=== PATIENT | male | born 1950 | race Caucasian/White ===

== ENCOUNTER 2016-11-25 10:19 | Inpatient (IN) ==
[2016-11-25] MEDS ORDERED: *HR* OxyCODONE Immed Rel 5 MG TABLET PO PRN (15:17)
[2016-11-25] MEDS: *HR* OxyCODONE Immed Rel 5 MG TABLET PO PRN (17:44)
[2016-11-26] MEDS: *HR* OxyCODONE Immed Rel 5 MG TABLET PO PRN ×4 (05:11→20:13)
[2016-11-26] MEDS: *HR* Enoxaparin 40 MG/0.4 ML SYRINGE SQ SCH (05:12)
[2016-11-26 05:23] LABS: Hemoglobin 10.3 g/dL (12.9-16.9); Mean Corpuscular HGB Conc 34.3 g/dL (31.6-35.5); Mean Corpuscular Hemoglobin 31.4 pg (28.0-33.3); Mean Corpuscular Volume 91.5 fL (83.0-100.0); Mean Platelet Volume 9.7 fL (9.4-12.4); Platelet Count 245 K/mcL (140-400); Red Blood Count 3.28 M/mcL (4.19-5.50); Red Cell Distribution Width 13.6 % (11.5-14.5)
[2016-11-26 05:38] LABS: BUN/Creatinine Ratio 20 (6-26); Blood Urea Nitrogen 14 mg/dL (8-26); Calcium 9.2 mg/dL (8.6-10.8); Carbon Dioxide 26 mEq/L (19-29); Chloride 102 mEq/L (98-109); Glucose 104 mg/dL (70-99); Osmolality,Calculated 285 (280-300); Potassium 3.9 mEq/L (3.5-4.5); Sodium 137 mEq/L (136-145); eGFR For African Americans > 60 (> 60); eGFR For Non-African Americans > 60 (> 60)
[2016-11-26] MEDS: Metoprolol XL (24 HR) Succ 25 MG TAB.ER.24H PO SCH (08:57)
[2016-11-26] MEDS: Aspirin Enteric Coated 325 MG Tablet PO SCH (08:57)
[2016-11-26] MEDS: Cholecalciferol (D-3) 1,000 UNIT TABLET PO SCH (08:58)
[2016-11-26] MEDS: Multivit/Ca/Min/Fe/FA 1 TAB TABLET PO SCH (08:58)
--- NOTE | 2016-11-26 13:07 | Internal Med History&Physical ---
Date of Encounter: 11/26/16 Time of Encounter: 13:05 Assessment and Plan (1) Status post total knee replacement, left Current visit: Yes Status: Acute Patient's here for rehabilitation status post left total knee replacement for osteoarthritis Internal Medicine - H&P: HPI Admitted From: Hospital to Hospital Transfer Plans for Post Hospital Care: Home History of present illness: Mr. Singh is a 66 year old male Past Med Surg Social Fam HX - Past Medical History Medical history: arthritis, hypertension Psychiatric history: no psych history, anxiety - Social History Smoking Status: Never smoker Smokeless Tobacco Status: No Alcohol use: none Drug use: none Internal Medicine - H&P: Meds Cholecalciferol (Vitamin D3) [Vitamin D3] 5,000 unit PO DAILY 10/21/16 [History] Diclofenac Sodium 50 mg PO TID PRN 10/21/16 [History] Flaxseed Oil [[place]-3 Flaxseed Oil] 1,000 mg PO DAILY 10/21/16 [History] Gluc/Dequan-MSM#1/C/Bjorn/Fito/Bor [Osteo Bi-Flex Caplet] 1 each PO DAILY 10/21/16 [ History] Multivitamin [Multivitamins] 1 each PO DAILY 10/21/16 [History] Aspirin Enteric Coated [Aspirin EC] 325 mg PO DAILY #21 tablet. 11/21/16 [Rx] Metoprolol XL (24 HR) Succ [Toprol XL] 25 mg PO DAILY 11/22/16 [History] Allergies Penicillins [PCN] Adverse Reaction (Verified 11/22/16 20:03) Rash All Systems PM: A 10-system review of systems was performed and is negative for pertinent findings except as documented above in the HPI. - Constitutional Vitals: Temp Pulse Resp BP Pulse Ox 98.9 F 79 19 126/73 93 11/26/16 04:20 11/26/16 04:20 11/26/16 04:20 11/26/16 04:20 11/26/16 04:20 - Head Head exam: Present: atraumatic, normocephalic - Neck Neck exam general surgery: Present: supple, trachea midline. Absent: lymphadenopathy - Respiratory Respiratory exam: Present: CTAB. Absent: accessory muscle use, rales, rhonchi, wheezes - Cardiovascular Cardiovascular exam: Present: RRR, +S1, +S2. Absent: diastolic murmur, gallop, rubs, systolic murmur Internal Med - H&P Results - Labs CBC & Chem 7: 11/26/16 05:05 11/26/16 05:05 Labs: Lab is stable Short CBC 11/26/16 Range/Units 05:05 WBC 9.1 (4.3-11.1) K/mcL Hgb 10.3 L (12.9-16.9) g/dL Hct 30.0 L (37.5-50.1) % Plt Count 245 (140-400) K/mcL BMP 11/26/16 05:05 Sodium 137 Potassium 3.9 Chloride 102 Carbon Dioxide 26 BUN 14 Creatinine 0.70 L Glucose 104 H Calcium 9.2
[2016-11-27] MEDS: *HR* OxyCODONE Immed Rel 5 MG TABLET PO PRN ×5 (00:36→23:41)
[2016-11-27] MEDS: *HR* Enoxaparin 40 MG/0.4 ML SYRINGE SQ SCH (06:29)
[2016-11-27] MEDS: Multivit/Ca/Min/Fe/FA 1 TAB TABLET PO SCH (09:05)
[2016-11-27] MEDS: Aspirin Enteric Coated 325 MG Tablet PO SCH (09:05)
[2016-11-27] MEDS: Cholecalciferol (D-3) 1,000 UNIT TABLET PO SCH (09:05)
[2016-11-27] MEDS: Metoprolol XL (24 HR) Succ 25 MG TAB.ER.24H PO SCH (09:05)
--- NOTE | 2016-11-27 18:46 | Internal Med Progress Note ---
Date of Encounter: 11/27/16 Time of Encounter: 18:43 - Assessment and plan (1) Status post total knee replacement, left Current Visit: Yes Status: Acute Assessment and plan: PT and OT working on transfer, safety, balance, endurance. - Time Spent With Patient less than 15 minutes - Subjective Interval history: Complains of mild left postop pain. No shortness of breath. No chest pain. No nausea no vomiting. - Constitutional Vitals: Temp Pulse Resp BP Pulse Ox 97 F L 74 16 153/63 99 11/27/16 07:33 11/27/16 07:33 11/27/16 07:33 11/27/16 07:33 11/27/16 07:33 General appearance: Present: A&O X 3, pleasant, no acute distress - Respiratory Respiratory exam: Present: CTAB. Absent: accessory muscle use, rales, rhonchi, wheezes - Cardiovascular Cardiovascular exam: Present: RRR, +S1, +S2. Absent: diastolic murmur, gallop, rubs, systolic murmur - GI/Abdominal GI/Abdominal exam: Present: normal bowel sounds, soft, no peritoneal signs. Absent: distended, tenderness - Expanded Lower Extremities Exam Knee exam: Present: ecchymosis, swelling, tenderness - Incison Incision: Present: clean and dry Internal Medicine: Result - Labs CBC & Chem 7: 11/26/16 05:05 11/26/16 05:05 Consult Discharge Plan - Plan Referrals: NO,PCP [Primary Care Provider] -
[2016-11-28] MEDS: *HR* OxyCODONE Immed Rel 5 MG TABLET PO PRN ×3 (04:30→20:17)
[2016-11-28] MEDS: *HR* Enoxaparin 40 MG/0.4 ML SYRINGE SQ SCH (06:08)
[2016-11-28] MEDS: Multivit/Ca/Min/Fe/FA 1 TAB TABLET PO SCH (08:25)
[2016-11-28] MEDS: Cholecalciferol (D-3) 1,000 UNIT TABLET PO SCH (08:25)
[2016-11-28] MEDS: Aspirin Enteric Coated 325 MG Tablet PO SCH (08:25)
[2016-11-28] MEDS: Metoprolol XL (24 HR) Succ 25 MG TAB.ER.24H PO SCH (08:25)
--- NOTE | 2016-11-28 09:06 | Internal Med Progress Note ---
Date of Encounter: 11/28/16 Time of Encounter: 09:04 - Assessment and plan (1) Status post total knee replacement, left Current Visit: Yes Status: Acute Assessment and plan: PT and OT working on transfer, safety, balance, endurance. - Time Spent With Patient less than 15 minutes - Subjective Interval history: wants his diet change From cardiac diet. Complains of mild left postop pain. No shortness of breath. No chest pain. No nausea no vomiting. - Constitutional Vitals: Temp Pulse Resp BP Pulse Ox 98.3 F 80 20 148/75 97 11/28/16 07:00 11/28/16 07:00 11/28/16 07:00 11/28/16 07:00 11/28/16 07:00 General appearance: Present: A&O X 3, pleasant, no acute distress - Respiratory Respiratory exam: Present: CTAB. Absent: accessory muscle use, rales, rhonchi, wheezes - Cardiovascular Cardiovascular exam: Present: RRR, +S1, +S2. Absent: diastolic murmur, gallop, rubs, systolic murmur - Extremities Exam Extremities exam: Present: warm, radial pulses palpable and symetrical. Absent : calf tenderness, cyanotic, pedal edema - Expanded Lower Extremities Exam Knee exam: Present: ecchymosis (blister area), swelling, tenderness. Absent: warmth Internal Medicine: Result - Labs CBC & Chem 7: 11/26/16 05:05 11/26/16 05:05 Consult Discharge Plan - Plan Referrals: NO,PCP [Primary Care Provider] -
[2016-11-29] MEDS: *HR* OxyCODONE Immed Rel 5 MG TABLET PO PRN ×4 (04:21→21:01)
[2016-11-29 05:33] LABS: BUN/Creatinine Ratio 17 (6-26); Blood Urea Nitrogen 11 mg/dL (8-26); Calcium 8.8 mg/dL (8.6-10.8); Carbon Dioxide 24 mEq/L (19-29); Chloride 104 mEq/L (98-109); Glucose 108 mg/dL (70-99); Osmolality,Calculated 284 (280-300); Potassium 4.1 mEq/L (3.5-4.5); Sodium 137 mEq/L (136-145); eGFR For African Americans > 60 (> 60); eGFR For Non-African Americans > 60 (> 60)
[2016-11-29 05:36] LABS: Basophils # 0.1 K/mcL (0.0-0.2); Basophils % 0.6 %; Eosinophils # 0.5 K/mcL (0.0-0.6); Eosinophils % 5.6 %; Hematocrit 27.7 % (37.5-50.1); Hemoglobin 9.4 g/dL (12.9-16.9); Immature Granulocytes % 0.7 % (0-4); Lymphocytes # 1.6 K/mcL (0.6-4.6); Lymphocytes % 19.4 %; Mean Corpuscular HGB Conc 33.9 g/dL (31.6-35.5); Mean Corpuscular Hemoglobin 30.9 pg (28.0-33.3); Mean Corpuscular Volume 91.1 fL (83.0-100.0); Mean Platelet Volume 9.3 fL (9.4-12.4); Monocytes # 0.8 K/mcL (0.0-1.3); Neutrophils # 5.1 K/mcL (1.6-8.9); Platelet Count 279 K/mcL (140-400); Red Blood Count 3.04 M/mcL (4.19-5.50); Red Cell Distribution Width 13.5 % (11.5-14.5); Segmented Neutrophils % 63.7 %
[2016-11-29] MEDS: *HR* Enoxaparin 40 MG/0.4 ML SYRINGE SQ SCH (05:52)
[2016-11-29] MEDS: Metoprolol XL (24 HR) Succ 25 MG TAB.ER.24H PO SCH (07:51)
[2016-11-29] MEDS: Cholecalciferol (D-3) 1,000 UNIT TABLET PO SCH (07:51)
[2016-11-29] MEDS: Multivit/Ca/Min/Fe/FA 1 TAB TABLET PO SCH (07:51)
[2016-11-29] MEDS: Aspirin Enteric Coated 325 MG Tablet PO SCH (07:51)
[2016-11-29] MEDS ORDERED: Acetaminophen 325 MG TABLET PO PRN ×2 (10:17→10:37)
[2016-11-29] MEDS ORDERED: *HR* OxyCODONE Immed Rel 5 MG TABLET PO PRN (10:49)
[2016-11-29] MEDS ORDERED: Acetaminophen 325 MG TABLET PO ONE (10:49)
--- NOTE | 2016-11-29 13:35 | Internal Med Progress Note ---
Date of Encounter: 11/29/16 Time of Encounter: 13:33 - Assessment and plan (1) Status post total knee replacement, left Current Visit: Yes Status: Acute Assessment and plan: The actual knee the incision looks clean and dry. Some swelling. But his lateral aspect of the tibial area just lateral and inferior to the knee has a blister currently some erythema and some smaller blisters. In the anterior tibial there is erythema. He did have low-grade temperature 100. So I am going to start him on some by mouth antibiotics. Bilateral be clear that the actual knee and the incision are clean dry and no erythema - Time Spent With Patient less than 15 minutes - Subjective Interval history: Tender over the anterior tibial area with erythema. This will be addressed - Constitutional Vitals: Temp Pulse Resp BP Pulse Ox 100.2 F H 75 18 152/71 96 11/29/16 07:01 11/29/16 07:01 11/29/16 07:01 11/29/16 07:01 11/29/16 07:01 General appearance: Present: A&O X 3, pleasant, no acute distress - Head Head exam: Present: atraumatic, normal inspection, normocephalic - Neck Neck exam general surgery: Present: supple, trachea midline. Absent: lymphadenopathy - Respiratory Respiratory exam: Present: CTAB. Absent: accessory muscle use, rales, rhonchi, wheezes - Cardiovascular Cardiovascular exam: Present: RRR, +S1, +S2. Absent: diastolic murmur, gallop, rubs, systolic murmur - Expanded Lower Extremities Exam Knee exam: Present: swelling Lower Leg exam: Present: erythema, swelling, tenderness Internal Medicine: Result - Labs CBC & Chem 7: 11/29/16 04:55 11/29/16 04:55 Labs: Short CBC 11/29/16 Range/Units 04:55 WBC 8.0 (4.3-11.1) K/mcL Hgb 9.4 L (12.9-16.9) g/dL Hct 27.7 L (37.5-50.1) % Plt Count 279 (140-400) K/mcL Neutrophils # 5.1 (1.6-8.9) K/mcL BMP 11/29/16 04:55 Sodium 137 Potassium 4.1 Chloride 104 Carbon Dioxide 24 BUN 11 Creatinine 0.64 L Glucose 108 H Calcium 8.8 Lab is okay Consult Discharge Plan - Plan Referrals: NO,PCP [Primary Care Provider] -
[2016-11-29] MEDS ORDERED: Azithromycin 500 MG in D5% in Water 250 ML IVPB ONE (15:55)
[2016-11-29] MEDS ORDERED: cephALEXin 500 MG CAPSULE PO SCH (21:00)
[2016-11-30] MEDS: *HR* Enoxaparin 40 MG/0.4 ML SYRINGE SQ SCH (06:52)
[2016-11-30 06:58] LABS: Bilirubin,Urine Negative (Negative); Blood,Urine Moderate (Negative); Clarity,Urine Cloudy (Clear); Color,Urine Red (Yellow); Ketones,Urine Negative (Negative); Leukocyte Esterase,Urine Negative (Negative); Nitrite,Urine Negative (Negative); Protein,Urine 30 mg/dL (Neg-Trace); Specific Gravity,Urine 1.015 (1.010-1.025); Urobilinogen,Urine Normal (Normal)
[2016-11-30 06:59] LABS: Glucose,Urine (UA) Normal (Normal)
[2016-11-30 07:01] LABS: RBC,Urine TNTC per hpf (0-3); WBC,Urine 0-3 per hpf (0-3)
[2016-11-30 07:03] LABS: Bacteria,Urine Few per hpf (None-Few)
[2016-11-30] MEDS: *HR* OxyCODONE Immed Rel 5 MG TABLET PO PRN ×3 (08:00→23:18)
[2016-11-30] MEDS: Metoprolol XL (24 HR) Succ 25 MG TAB.ER.24H PO SCH (08:00)
[2016-11-30] MEDS: Cholecalciferol (D-3) 1,000 UNIT TABLET PO SCH (08:00)
[2016-11-30] MEDS: Azithromycin 250 MG TABLET PO SCH (08:00)
[2016-11-30] MEDS: Aspirin Enteric Coated 325 MG Tablet PO SCH (08:00)
[2016-11-30] MEDS: Multivit/Ca/Min/Fe/FA 1 TAB TABLET PO SCH (08:00)
--- NOTE | 2016-11-30 13:23 | Internal Med Progress Note ---
Date of Encounter: 11/30/16 Time of Encounter: 13:19 - Assessment and plan (1) Status post total knee replacement, left Current Visit: Yes Status: Acute Assessment and plan: Man has done exceedingly well. He has been ambulating with a walker since he arrived. He is moving furthered further unless problem - Time Spent With Patient less than 15 minutes - Subjective Interval history: I think there is little less edema and he says less tender. I will continue closely followed erythema at the lower tibial - Constitutional Vitals: Temp Pulse Resp BP Pulse Ox 99.3 F 70 18 125/71 93 11/30/16 07:10 11/30/16 07:10 11/30/16 07:10 11/30/16 07:10 11/30/16 07:10 General appearance: Present: cooperative, A&O X 3, pleasant, no acute distress - Head Head exam: Present: atraumatic, normocephalic - Neck Neck exam general surgery: Present: supple, trachea midline. Absent: lymphadenopathy - Respiratory Respiratory exam: Present: CTAB. Absent: accessory muscle use, rales, rhonchi, wheezes - Cardiovascular Cardiovascular exam: Present: RRR, +S1, +S2. Absent: diastolic murmur, gallop, rubs, systolic murmur - GI/Abdominal GI/Abdominal exam: Present: normal bowel sounds, soft, no peritoneal signs. Absent: distended, tenderness Internal Medicine: Result - Labs CBC & Chem 7: 11/29/16 04:55 11/29/16 04:55 Labs: Urine 11/30/16 Range/Units 06:00 Urine Color Red A (Yellow) Urine Clarity Cloudy A (Clear) Urine pH 7.0 (5.0-8.0) pH Units Ur Specific [place] 1.015 (1.010-1.025) Urine Protein 30 H (Neg-Trace) mg/dL Urine Glucose (UA) Normal (Normal) mg/dL Lab is stable Consult Discharge Plan - Plan Referrals: NO,PCP [Primary Care Provider] -
[2016-11-30] MEDS: Furosemide 40 MG TABLET PO SCH (16:24)
[2016-12-01] MEDS: *HR* Enoxaparin 40 MG/0.4 ML SYRINGE SQ SCH (05:45)
[2016-12-01] MEDS: *HR* OxyCODONE Immed Rel 5 MG TABLET PO PRN ×4 (06:52→23:29)
[2016-12-01] MEDS: Metoprolol XL (24 HR) Succ 25 MG TAB.ER.24H PO SCH (08:00)
[2016-12-01] MEDS: Multivit/Ca/Min/Fe/FA 1 TAB TABLET PO SCH (08:00)
[2016-12-01] MEDS: Cholecalciferol (D-3) 1,000 UNIT TABLET PO SCH (08:00)
[2016-12-01] MEDS: Azithromycin 250 MG TABLET PO SCH (08:00)
[2016-12-01] MEDS: Furosemide 40 MG TABLET PO SCH ×2 (08:00→16:28)
[2016-12-01] MEDS: Aspirin Enteric Coated 325 MG Tablet PO SCH (08:00)
--- NOTE | 2016-12-01 12:25 | Physical Med Progress Note ---
Date of Encounter: 12/01/16 Time of Encounter: 12:24 Physical Medicine-PN: Subj Interval history: PMR PCC Note Mr. Singh is doing well following his left TKA. He is ambulating 150 feet, performed steps today. His independent in his room. Plan for him to discharge to home on 12/02/16. Continue with outpatient PT after discharge. - Constitutional Vitals: Vital Signs Temp Pulse Resp BP Pulse Ox 12/01/16 07:55 70 16 151/75 97 12/01/16 06:57 97.8 F 70 16 151/75 97 11/30/16 19:36 99.2 F 78 16 118/73 93 Intake and Output 11/30/16 12/01/16 12/01/16 23:59 07:59 15:59 Intake Total 240 / 240 480 / 480 Balance 240 / 240 480 / 480 Intake: Oral 240 / 240 480 / 480 Other: Meal Dinner Breakfast Percent of Meal Consumed 100% 100% # Voids 1 Physical Medicine-PN: Obj Data - Labs CBC & Chem 7: 11/29/16 04:55 11/29/16 04:55 Consult Discharge Plan - Plan Referrals: NO,PCP [Primary Care Provider] -
--- NOTE | 2016-12-01 15:12 | Discharge Summary ---
Date of Encounter: 12/01/16 Time of Encounter: 15:10 - Discharge Diagnosis (1) Status post total knee replacement, left Priority: Primary Status: Acute Comments: Patient did very well - Discharge Medications Home Medications: Cholecalciferol (Vitamin D3) [Vitamin D3] 5,000 unit PO DAILY 10/21/16 [History] Diclofenac Sodium 50 mg PO TID PRN 10/21/16 [History] Flaxseed Oil [[place]-3 Flaxseed Oil] 1,000 mg PO DAILY 10/21/16 [History] Gluc/Dequan-MSM#1/C/Bjorn/Fito/Bor [Osteo Bi-Flex Caplet] 1 each PO DAILY 10/21/16 [ History] Multivitamin [Multivitamins] 1 each PO DAILY 10/21/16 [History] Aspirin Enteric Coated [Aspirin EC] 325 mg PO DAILY #21 tablet. 11/21/16 [Rx] Metoprolol XL (24 HR) Succ [Toprol XL] 25 mg PO DAILY 11/22/16 [History] Allergies/Adverse Reactions: Allergies Penicillins [PCN] Adverse Reaction (Verified 11/22/16 20:03) Rash Date of admission: 11/25/16 13:47 Primary care physician: PCP NO Consults: 11/25/16 15:15 Consult to Occupational Therapy [CONS] Routine Comment: Evaluate, develop and implement POC Reason for Consult: eval and treat Consult to Physical Therapy [CONS] Routine Comment: Evaluate, develop and implement POC Reason for Consult: eval and treat Consult to Recreational Therapy [CONS] Routine Comment: Evaluate, develop and implement POC Consult to Numerical Analysis Group Manager [CONS] Routine Reason for SW Consult: for discharge instruction Discharging clinician: Bay Lin Anticipated date of discharge: 12/02/16 - Patient Status Disposition: Home, Self-Care Condition: Good Functional capacity at discharge: uses cane/walker Overall status at discharge: patient is progressing back to baseline - Discharge Instructions Follow Up With: NO,PCP [Primary Care Provider] - - Diet and Activity Activity: ambulate only with your walker Diet: advance to your usual diet Interval History: Mr. Blanco came after surgery had started ambulating immediately as done very well. Erythema is diminished and the swelling is down Hospital course: Mr. Singh is a 66 year old male Who is done very well here is ambulating and able to do household distances. Has pain meds and follow-up - Time Spent with Patient Total time spent providing and/or coordinating discharge services: Less than 30 minutes - Constitutional Vitals: Temp Pulse Resp BP Pulse Ox 97.8 F 70 16 151/75 97 12/01/16 06:57 12/01/16 07:55 12/01/16 07:55 12/01/16 07:55 12/01/16 07:55 General appearance: Present: cooperative, A&O X 3, pleasant, no acute distress - Head Head exam: Present: atraumatic, normal inspection, normocephalic - Neck Neck exam general surgery: Present: supple, trachea midline. Absent: lymphadenopathy - Respiratory Respiratory exam: Present: CTAB. Absent: accessory muscle use, rales, rhonchi, wheezes - Cardiovascular Cardiovascular exam: Present: RRR, +S1, +S2. Absent: diastolic murmur, gallop, rubs, systolic murmur
[2016-12-02] MEDS: *HR* Enoxaparin 40 MG/0.4 ML SYRINGE SQ SCH (06:42)
[2016-12-02] MEDS: *HR* OxyCODONE Immed Rel 5 MG TABLET PO PRN ×2 (06:42→10:47)
[2016-12-02 07:21] VITALS: BP 146/71
[2016-12-02] MEDS: Azithromycin 250 MG TABLET PO SCH (08:27)
[2016-12-02] MEDS: Furosemide 40 MG TABLET PO SCH (08:27)
[2016-12-02] MEDS: Cholecalciferol (D-3) 1,000 UNIT TABLET PO SCH (08:27)
[2016-12-02] MEDS: Multivit/Ca/Min/Fe/FA 1 TAB TABLET PO SCH (08:27)
[2016-12-02] MEDS: Aspirin Enteric Coated 325 MG Tablet PO SCH (08:27)
[2016-12-02] MEDS: Metoprolol XL (24 HR) Succ 25 MG TAB.ER.24H PO SCH (08:27)
== END 2016-12-02 11:45 | disposition home or self-care (01) | DRG 561 ==
LOC: INPGRE 13:47
PROVIDERS: ADMIT Internal Medicine; ATTEND Internal Medicine